=== PATIENT | male | born 1960 | race Caucasian/White ===

== ENCOUNTER 2016-11-24 10:31 | Emergency (ER) | payer MEDICARE, OTHER | END 2016-11-24 11:13 | disposition home or self-care (01) | LOC: ER 10:31 | DX: S80.212A Abrasion, left knee, initial encounter (principal); S40.012A Contusion of left shoulder, initial encounter; S30.0XXA Contusion of lower back and pelvis, initial encounter; S80.02XA Contusion of left knee, initial encounter; W01.0XXA Fall on same level from slipping, tripping and stumbling without subsequent striking against object, initial encounter; E11.9 Type 2 diabetes mellitus without complications; Z79.899 Other long term (current) drug therapy; Z88.8 Allergy status to other drugs, medicaments and biological substances | CPT/HCPCS: 72100; 73030; 73560; 99283 ==

== ENCOUNTER 2016-12-24 17:31 | Emergency (ER) | payer MEDICARE, OTHER | END 2016-12-24 21:14 | disposition home or self-care (01) | LOC: ER 17:31 | DX: S00.93XA Contusion of unspecified part of head, initial encounter (principal); S80.01XA Contusion of right knee, initial encounter; S80.02XA Contusion of left knee, initial encounter; W01.0XXA Fall on same level from slipping, tripping and stumbling without subsequent striking against object, initial encounter; R42 Dizziness and giddiness; E11.9 Type 2 diabetes mellitus without complications; R51 Headache; Z88.5 Allergy status to narcotic agent; Z79.899 Other long term (current) drug therapy; Z79.84 Long term (current) use of oral hypoglycemic drugs | CPT/HCPCS: 70450; 73502; 73560; 99283; 99284 ==